=== PATIENT | female | born 1950 | race Caucasian/White ===

== ENCOUNTER 2021-04-18 16:36 | Emergency (ER) | payer MEDICARE, OTHER ==
[2021-04-18] MEDS ORDERED: Bacitracin Oint 1 GM U/D Packet TOP ONE (16:57)
--- NOTE | 2021-04-18 17:05 | EDM.PDOC ---
ED HPI GENERAL MEDICAL PROBLEM - General Chief Complaint: General Stated Complaint: WEDDING RING REMOVED, SQUEZZING FINGER Time Seen by Provider: 04/18/21 16:50 Source of Information: Reports: Patient History Limitations: Reports: No Limitations - History of Present Illness INITIAL COMMENTS - FREE TEXT/NARRATIVE: This 70 yo female patient reports to the ED due to her wedding band being stuck on her finger. The patient reports she has noticed increased pain due to the ring staying in place. The patient reports her son had tried to remove her ring, but was unsuccessful. Onset: Today Duration: Constant Location: Reports: Upper Extremity, Left Quality: Reports: Ache, Dull Severity: Moderate Improves with: Reports: None Worsens with: Reports: None Context: Reports: Other Associated Symptoms: Reports: No Other Symptoms Left Finger-Ring Pain Score (Numeric/FACES): 2 - Related Data Allergies Allergy/AdvReac Type Severity Reaction Status Date / Time hydrochlorothiazide Allergy Other Verified 04/18/21 16:58 ED ROS GENERAL - Review of Systems Review Of Systems: Comprehensive ROS is negative, except as noted in HPI. ED EXAM, GENERAL - Physical Exam Exam: See Below Exam Limited By: No Limitations General Appearance: Alert, WD/WN, No Apparent Distress Eye Exam: Bilateral Eye: EOMI, Normal Inspection, PERRL Ears: Normal External Exam, Normal Canal, Hearing Grossly Normal, Normal TMs Nose: Normal Inspection, Normal Mucosa, No Blood Throat/Mouth: Normal Inspection, Normal Lips, Normal Teeth, Normal Gums, Normal Oropharynx, Normal Voice, No Airway Compromise Head: Atraumatic, Normocephalic Neck: Normal Inspection, Supple, Non-Tender, Full Range of Motion Respiratory/Chest: No Respiratory Distress, Lungs Clear, Normal Breath Sounds, No Accessory Muscle Use, Chest Non-Tender Cardiovascular: Normal Peripheral Pulses, Regular Rate, Rhythm, No Edema, No Gallop, No JVD, No Murmur, No Rub GI/Abdominal: Normal Bowel Sounds, Soft, Non-Tender, No Organomegaly, No Distention, No Abnormal Bruit, No Mass (Female) Exam: Deferred Rectal (Female) Exam: Deferred Back Exam: Normal Inspection, Full Range of Motion, NT Extremities: Arm Pain Neurological: Alert, Oriented, CN II-XII Intact, Normal Cognition, Normal Gait, Normal Reflexes, No Motor/Sensory Deficits Psychiatric: Normal Affect, Normal Mood Skin Exam: Warm, Dry, Normal Color, No Rash Lymphatic: No Adenopathy Course - Vital Signs Last Recorded V/S: Last Vital Signs Temp 97.7 F 04/18/21 16:45 Pulse 97 04/18/21 16:45 Resp 16 04/18/21 16:45 BP 141/61 H 04/18/21 16:45 Pulse Ox 99 04/18/21 16:45 - Orders/Labs/Meds Meds: Medications Discontinued Medications Generic Name Dose Route Start Last Admin Trade Name Aye PRN Reason Stop Dose Admin Bacitracin 1 dose 04/18/21 16:57 04/18/21 17:02 Bacitracin Oint 1 Gm U/D Packet TOP 04/18/21 16:58 1 dose ONETIME ONE Administration Departure - Departure Time of Disposition: 17:01 Disposition: Home, Self-Care 01 Condition: Fair Clinical Impression: Tight ring on finger - Discharge Information *PRESCRIPTION DRUG MONITORING PROGRAM REVIEWED*: Not Applicable *COPY OF PRESCRIPTION DRUG MONITORING REPORT IN PATIENT GINA: Not Applicable Forms: ED Department Discharge Care Plan Goals: The patient's ring was removed during the visit. Antibiotic ointment was applied to the skin after removal of the ring. The patient was encouraged to use antibiotic ointment over the next couple of days to prevent infection. If the patient has any additional symptoms or concerns, the patient should either return to the emergency department or visit her primary care facility. Sepsis Event Note (ED) - Focused Exam Vital Signs: Vital Signs Temp Pulse Resp BP Pulse Ox 04/18/21 16:45 97.7 F 97 16 141/61 H 99
== END 2021-04-18 17:06 | disposition home or self-care (01) ==
LOC: DL.ED 16:36
DX: S60.445A External constriction of left ring finger, initial encounter (principal); Z88.8 Allergy status to other drugs, medicaments and biological substances; W49.04XA Ring or other jewelry causing external constriction, initial encounter
CPT/HCPCS: 99283

== ENCOUNTER 2021-07-29 19:07 | Emergency (ER) | payer OTHER ==
[2021-07-29 21:05] LABS: ANION GAP 17.6 mEq/L (7-13); CHLORIDE,CL 99 mmol/L (98-107); SODIUM,NA 139 mmol/L (136-145)
--- NOTE | 2021-07-29 21:28 | CT ---
PROCEDURE INFORMATION: Exam: CT Head Without Contrast Exam date and time: 07/29/2021 8:46 PM Age: 71 years old Clinical indication: Other: Confusion, covid exposure wheeze TECHNIQUE: Imaging protocol: Computed tomography of the head without contrast. Radiation optimization: All CT scans at this facility use at least one of these dose optimization techniques: automated exposure control; mA and/or kV adjustment per patient size (includes targeted exams where dose is matched to clinical indication); or iterative reconstruction. COMPARISON: No relevant prior studies available. FINDINGS: Brain: No mass effect or midline shift. No abnormal densities are seen intracranially; no sign of acute intracranial hemorrhage or cerebral edema. Cerebral ventricles: No ventriculomegaly. Paranasal sinuses: Visualized sinuses are unremarkable. No fluid levels. Mastoid air cells: Visualized mastoid air cells are well aerated. Auditory system: There is heterogeneous cerumen in right external auditory canal. Bones/joints: Skull base and overlying calvarium are intact. No lytic or osteosclerotic lesions. Soft tissues: Unremarkable. IMPRESSION: No acute intracranial abnormality.
--- NOTE | 2021-07-29 21:38 | CT ---
PROCEDURE INFORMATION: Exam: CT Chest Without Contrast; Diagnostic Exam date and time: 07/29/2021 8:56 PM Age: 71 years old Clinical indication: Other: Confusion, covid exposure wheeze TECHNIQUE: Imaging protocol: Diagnostic computed tomography of the chest without contrast. Radiation optimization: All CT scans at this facility use at least one of these dose optimization techniques: automated exposure control; mA and/or kV adjustment per patient size (includes targeted exams where dose is matched to clinical indication); or iterative reconstruction. COMPARISON: No relevant prior studies available. FINDINGS: Limitations: Images are degraded by motion. Lungs: Bilateral peripheral mild airspace densities consistent with COVID-19 pneumonia. Moderate centrilobular pulmonary emphysema. Small focus of right upper lobe anterior segment scarring with cicatrization bronchiectasis. Pleural spaces: 1 or 2 tiny pleural based nodules, incidental.. No pleural effusion, pneumothorax, mass or calcification. Heart: There are atherosclerotic calcifications inclusive of the coronary arteries. Heart is normal in size. No pericardial effusion. Aorta: No aortic aneurysm. Lymph nodes: No enlarged axillary, mediastinal, or hilar lymph nodes. Gallbladder and bile ducts: The gallbladder is surgically absent. Bones/joints: Age appropriate spondylosis. There are no suspicious lytic or osteosclerotic lesions. There are no acute fractures. 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 IMPRESSION: Mild COVID-19 pneumonia.
[2021-07-29] MEDS ORDERED: Dexamethasone 4 MG/ML SDV IVPUSH ONE (21:57)
--- NOTE | 2021-07-29 23:30 | EDM.PDOC ---
ED HPI GENERAL MEDICAL PROBLEM - General Chief Complaint: Neurological Problem Stated Complaint: CONFUSED, SHORT OF BREATH, OXY 82% COVID Time Seen by Provider: 07/29/21 20:10 Source of Information: Reports: Patient, Family, RN History Limitations: Reports: Altered Mental Status - History of Present Illness INITIAL COMMENTS - FREE TEXT/NARRATIVE: ED via POV, Family dropped patient off , did not come in as family member reorted to be positive for COVID. Family had called earlier regarding patient and noted oxygen saturation at home 85%. Patient denies complaints is unsure w hy she is here. Contact with daughter in [place] states patient has some dementia at baseline. Did spend Thanksgiving with here and noticed progression in processing, repetitive phrases, Unable to heat cocoa in microwave. Today other family member noticed difficulty with putting on socks. - Related Data Allergies Allergy/AdvReac Type Severity Reaction Status Date / Time hydrochlorothiazide Allergy Other Verified 07/29/21 20:30 Past Medical History - Past Health History Medical/Surgical History: Denies Medical/Surgical History (hx tobacco use) Social & Family History - Tobacco Use Tobacco Use Status *Q: Former Tobacco User Used Tobacco, but Quit: Yes Month/Year Tobacco Last Used: unknown Second Hand Smoke Exposure: No - Caffeine Use Caffeine Use: Reports: None - Recreational Drug Use Recreational Drug Use: No - Living Situation & Occupation Living situation: Reports: Alone ED ROS GENERAL - Review of Systems Review Of Systems: See Below ED EXAM, GENERAL - Physical Exam Exam: See Below Exam Limited By: No Limitations General Appearance: Alert, Mild Distress Eye Exam: Bilateral Eye: EOMI, PERRL Ears: Normal External Exam, Hearing Loss Nose: Normal Inspection Throat/Mouth: Normal Inspection Head: Atraumatic Neck: Normal Inspection Respiratory/Chest: Decreased Breath Sounds, Crackles (right lower improve with cough). No: Wheezing Cardiovascular: Regular Rate, Rhythm GI/Abdominal: Normal Bowel Sounds, Soft Extremities: Normal Inspection Neurological: Alert, Oriented (person place), Slow to Respond, Memory Loss Recent Events, Other (confused month, date, day of week. able to follow only simple commands. Able to assist with removing shirt, appeared to not to commprehend under clothes. and how to get out of bra. No motor defecit ) Psychiatric: Flat Affect Skin Exam: Warm, Dry, Intact, Normal Color #1 Interpretation EKG Date: 07/29/21 Time: 20:42 Rhythm: NSR Rate (Beats/Min): 89 Molt: Normal P-Wave: Present QRS: Normal ST-T: Normal Comparison: NA - No Prior EKG Course - Vital Signs Last Recorded V/S: Last Vital Signs Temp 98.7 F 07/29/21 23:58 Pulse 78 07/29/21 23:58 Resp 26 H 07/29/21 23:58 BP 104/46 L 07/29/21 23:58 Pulse Ox 93 L 07/29/21 23:58 - Orders/Labs/Meds Orders: Active Orders 24 hr Category Date Time Status CULTURE BLOOD [BC] Stat Lab 07/29/21 20:25 Received UA RFX RAFI AND CULT IF INDIC [URIN] Urgent Lab 07/29/21 22:04 Ordered Labs: Laboratory Tests 07/29/21 07/29/21 07/29/21 Range/Units 20:10 20:25 20:25 WBC 5.0 (5.0-10.0) 10^3/uL RBC 4.34 (4.2-5.4) 10^6/uL Hgb 13.6 (12.0-16.0) g/dL Hct 40.1 (37.0-47.0) % MCV 92.4 (80-100) fL MCH 31.3 (27.0-34.0) pg MCHC 33.9 (33.0-35.0) g/dL Plt Count 223 (150-450) 10^3/uL Neut % (Auto) 59.2 (42.2-75.2) % Lymph % (Auto) 21.5 (20.5-50.1) % Dickinson % (Auto) 19.1 H (2-8) % Eos % (Auto) 0.0 L (1.0-3.0) % Baso % (Auto) 0.2 (0.0-1.0) % Add Manual Diff Yes Neutrophils % (Manual) 55 (42-75) % Lymphocytes % (Manual) 29 (20-50) % Monocytes % (Manual) 16 H (2-8) % PT 10.4 (9.0-12.0) SEC INR 1.0 (0.9-1.2) D-Dimer, Quantitative 771 H (0-400) ng/mL Sodium (136-145) mmol/L Potassium (3.5-5.1) mmol/L Chloride (98-107) mmol/L Carbon Dioxide (21-32) mmol/L Anion Gap (7-13) mEq/L BUN (7-18) mg/dL Creatinine (0.55-1.02) mg/dL Est Cr Clr Drug Dosing Estimated GFR (MDRD) BUN/Creatinine Ratio (No establ ref range) Glucose (70-99) mg/dL POC Glucose (70-99) mg/dL Lactic Acid (0.4-2.0) mmol/L Calcium (8.5-10.1) mg/dL Magnesium (1.8-2.4) mg/dL Total Bilirubin (0.2-1.0) mg/dL AST (15-37) U/L ALT (14-59) U/L Alkaline Phosphatase (46-116) U/L C-Reactive Protein (0.0-0.9) mg/dL Total Protein (6.4-8.2) g/dL Albumin (3.4-5.0) g/dL Globulin Albumin/Globulin Ratio SARS-CoV-2 RNA (CATARINO) Positive H (NEGATIVE) 07/29/21 07/29/21 07/30/21 Range/Units 20:25 20:25 00:02 WBC (5.0-10.0) 10^3/uL RBC (4.2-5.4) 10^6/uL Hgb (12.0-16.0) g/dL Hct (37.0-47.0) % MCV (80-100) fL MCH (27.0-34.0) pg MCHC (33.0-35.0) g/dL Plt Count (150-450) 10^3/uL Neut % (Auto) (42.2-75.2) % Lymph % (Auto) (20.5-50.1) % Dickinson % (Auto) (2-8) % Eos % (Auto) (1.0-3.0) % Baso % (Auto) (0.0-1.0) % Add Manual Diff Neutrophils % (Manual) (42-75) % Lymphocytes % (Manual) (20-50) % Monocytes % (Manual) (2-8) % PT (9.0-12.0) SEC INR (0.9-1.2) D-Dimer, Quantitative (0-400) ng/mL Sodium 139 (136-145) mmol/L Potassium 3.6 (3.5-5.1) mmol/L Chloride 99 (98-107) mmol/L Carbon Dioxide 26 (21-32) mmol/L Anion Gap 17.6 H (7-13) mEq/L BUN 15 (7-18) mg/dL Creatinine 0.92 (0.55-1.02) mg/dL Est Cr Clr Drug Dosing TNP Estimated GFR (MDRD) > 60 BUN/Creatinine Ratio 16.3 (No establ ref range) Glucose 95 (70-99) mg/dL POC Glucose 96 (70-99) mg/dL Lactic Acid 1.8 (0.4-2.0) mmol/L Calcium 9.0 (8.5-10.1) mg/dL Magnesium 1.8 (1.8-2.4) mg/dL Total Bilirubin 0.6 (0.2-1.0) mg/dL AST 36 (15-37) U/L ALT 28 (14-59) U/L Alkaline Phosphatase 75 (46-116) U/L C-Reactive Protein 7.5 H (0.0-0.9) mg/dL Total Protein 7.8 (6.4-8.2) g/dL Albumin 3.6 (3.4-5.0) g/dL Globulin 4.2 Albumin/Globulin Ratio 0.9 SARS-CoV-2 RNA (CATARINO) (NEGATIVE) Meds: Medications Discontinued Medications Generic Name Dose Route Start Last Admin Trade Name Aye PRN Reason Stop Dose Admin Dexamethasone 6 mg 07/29/21 21:57 07/29/21 22:32 Dexamethasone 4 Mg/Ml Sdv IVPUSH 07/29/21 21:58 6 mg ONETIME ONE Administration Sodium Chloride 1,000 mls @ 125 mls/hr 07/29/21 23:53 07/29/21 23:58 Normal Saline IV 07/30/21 07:52 125 mls/hr .BOLUS ONE Administration - Re-Assessments/Exams Free Text/Narrative Re-Assessment/Exam: 07/29/21 23:40 TC daughter Nimo [phone] Daughter with her on Thanksgiving noted slight cough during night but sx resolved on Tuesday. Other family checkd today reported patient had difficulty putting on socks by herself. Came back and checked oxygen sat and was 85%. No bed available at [facility], Dr Hernandez Rodríguez accepting patient. Tx via [facility]. Daughter updated. Patient's son currently at [facility] with COVID and on hi flow oxygen. Departure - Departure Time of Disposition: 00:30 Disposition: DC/Tfer to Acute Hospital 02 Condition: Good Clinical Impression: COVID-19, Pneumonia due to 2019 novel coronavirus, Hypoxia Altered mental status Qualifiers: Altered mental status type: disorientation Qualified Code(s): R41.0 - Disorientation, unspecified - Discharge Information *PRESCRIPTION DRUG MONITORING PROGRAM REVIEWED*: No *COPY OF PRESCRIPTION DRUG MONITORING REPORT IN PATIENT GINA: No Forms: ED Department Discharge Sepsis Event Note (ED) - Evaluation Sepsis Screening Result: No Definite Risk - Focused Exam Vital Signs: Vital Signs Temp Pulse Resp BP Pulse Ox 07/29/21 23:58 98.7 F 78 26 H 104/46 L 93 L 07/29/21 20:23 99.1 F 98 20 150/104 H 88 L - My Orders Last 24 Hours: My Active Orders 07/29/21 20:25 CULTURE BLOOD [BC] Stat 07/29/21 22:04 UA RFX RAFI AND CULT IF INDIC [URIN] Urgent - Assessment/Plan Last 24 Hours: My Active Orders 07/29/21 20:25 CULTURE BLOOD [BC] Stat 07/29/21 22:04 UA RFX RAFI AND CULT IF INDIC [URIN] Urgent
[2021-07-29] MEDS ORDERED: Sodium Chloride 0.9% 1,000 ML IV ONE (23:53)
== END 2021-07-30 00:20 ==
LOC: DL.ED 19:07
DX: R41.82 Altered mental status, unspecified (principal); U07.1 COVID-19; J12.82 Pneumonia due to coronavirus disease 2019; R09.02 Hypoxemia; Z87.891 Personal history of nicotine dependence; Z88.8 Allergy status to other drugs, medicaments and biological substances
CPT/HCPCS: 36415; 70450; 71250; 80053; 82947; 83605; 83735; 85025; 85379; 85610; 86140; 87040; 87635; 96374; 99285; J1100; J7030; U0002